=== PATIENT | female | born 1980 | race Caucasian/White ===

== ENCOUNTER 2021-08-07 12:34 | Inpatient (IN) | payer MEDICAID, SELFPAY ==
[2021-08-07 12:54] VITALS: BP 105/67; PULSE 80; RESP 17; O2SAT 99
[2021-08-07 14:00] VITALS: BP 105/67; PULSE 80; RESP 17; O2SAT 99
[2021-08-07] MEDS: nicotine 2 mg Gum BUCCAL ×2 (15:09→16:43)
[2021-08-07] MEDS: OLANZapine 5 mg ODT PO (16:45)
--- NOTE | 2021-08-07 16:45 | PC.NURSE ---
Addendum entered by Karin Fuentes LPN 08/07/21 18:11: prn med effective no further c/o anxiety/agitation currently, pt was able to shower, pleasant with staff interaction Original Note: PRN ZYPREXA ZYDIS 5 MG GIVEN PO PER PT C/O ANXIETY/AGITATION.
[2021-08-07 20:30] VITALS: BP 110/65; PULSE 75; RESP 18; O2SAT 99
[2021-08-08 06:00] VITALS: BP 103/66; PULSE 74; RESP 16; O2SAT 96
[2021-08-08] MEDS: nicotine 2 mg Gum BUCCAL ×3 (09:20→16:02)
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
[2021-08-08] MEDS: fluoxetine 20 mg Capsule PO (10:49)
[2021-08-08 14:00] VITALS: BP 128/91; PULSE 77; RESP 18; TEMP 36.7; O2SAT 97
[2021-08-08] MEDS: lurasidone 20 mg Tablet PO (16:22)
[2021-08-08] MEDS: hyDROXYzine 25 mg Capsule 50 MG PO (17:31)
--- NOTE | 2021-08-08 17:32 | PC.NURSE ---
PRN VISTARIL 50 MG GIVEN PO PER PT C/O ANXIETY
[2021-08-08 20:34] VITALS: BP 114/73; PULSE 85; RESP 20; TEMP 36.6; O2SAT 99
[2021-08-09 06:00] VITALS: BP 120/62; PULSE 79; RESP 18; TEMP 36.1; O2SAT 97
[2021-08-09 06:20] LABS: Glucose Point of Care 63 mg/dL (70-110)
[2021-08-09] MEDS: nicotine 2 mg Gum BUCCAL ×5 (06:20→15:57)
[2021-08-09] MEDS: hyDROXYzine 25 mg Capsule 50 MG PO ×2 (08:20→11:50)
[2021-08-09] MEDS: fluoxetine 20 mg Capsule PO (08:20)
[2021-08-09] MEDS: acetaminophen 325 mg Tablet 650 MG PO (08:21)
--- NOTE | 2021-08-09 09:10 | P.NPUPN_ITS ---
Subjective NPU Subjective: She feels like she is doing a little better. Could not tell any difference from the Latuda yesterday afternoon. When I was talking to another patient in the patient room she came into the room and said that she remembered that lithium had helped her before. She also requested that the Latuda be increased. She agrees to go to a treatment program because she thinks that is why her air support control officer would require. Mental Status Exam MSE Comments: This is a 41-year-old thin female who appears approximately her stated age and is in no acute distress.? She was found coloring in the day room. She is poorly groomed and in hospital scrubs. As we were talking she pushed the crayons off the table and onto the floor. When I asked why she did that she said that they just fell off the table. psychomotor activity is normal. Speech is at a regular rate and rhythm, normal volume, good articulation, not pressured. Alert, oriented X3 Attention and concentration appear to be normal. Memory is intact Mood is depressed.? Affect is moderately dysphoric and irritable Thought process is logical and goal-directed. Thought content:? Denies auditory and visual hallucinations.? No delusions or paranoia are noted.? No current suicidal ideation, and no homicidal ideation.? Fund of knowledge is average. Insight and judgment appear to be poor. Impulse control is poor. Cognition: Patient Appearance: Disheveled/Poor Hygiene Patient Orientation (long list): Person, Place, Name, Age and Birthday Comprehension Ability: No Impairment Hallucination Type: None Delusion Description: Not Present Thought Process: Appropriate Affect: Affect Description: Calm Behavior: Patient Behavior: Cooperative Speech Pattern: Clear Vitals/I&O/Wt Last Vital Signs Temp 98.2 F 08/10/21 13:58 Pulse 88 08/10/21 13:58 Resp 17 08/10/21 13:58 BP 143/83 08/10/21 13:58 Pulse Ox 98 08/10/21 13:58 Weight last 48 hrs Weight 58.151 kg A&P Assessment and plan (1) Methamphetamine abuse: Status: Acute (2) Alcohol abuse: Status: Acute (3) PTSD (post-traumatic stress disorder): Status: Acute (4) Homicidal ideation: Status: Acute Plan This is a 41-year-old female with a long history of alcohol and methamphetamine abuse in and out of senior care who reports significant PTSD, anxiety and depression Plan: 1.? Restart Prozac 20 mg daily and Latuda 20 mg daily.? Increase as tolerated. 2.? Continue every 15 minute checks for safety. 3.? Encourage individual, group and milieu therapies. 4.? Encourage sober living treatment after discharge at the highest level of c are to which she is willing to commit. 5.? We will monitor for safety for herself in the community prior to discharge. Involuntary Hold Information 96 Hour Hold: 96 Hour Involuntary Admission: Yes 96 Hour Hold Ending Date: 08/13/21 96 Hour Hold Ending Time: 12:42 Attestations NPU Medical Necessity Statement*: Inpatient hospitalization is medically necessary and the clinically appropriate intervention at this time. We will initiate medications and make changes as indicated. Coding Level of Care Code Acute Occupational Medicine Physician for Francisco Ashby Diagnoses Methamphetamine abuse F15.10 Alcohol abuse F10.10 PTSD (post-traumatic stress disorder) F43.10 Homicidal ideation R45.850
[2021-08-09 13:37] VITALS: BP 110/62; PULSE 85; RESP 16; TEMP 36.8; O2SAT 99
[2021-08-09] MEDS: lurasidone 20 mg Tablet PO (15:56)
[2021-08-09 21:29] VITALS: BP 103/62; PULSE 71; RESP 16; TEMP 36.4; O2SAT 97
[2021-08-10 06:00] VITALS: BP 112/69; PULSE 79; RESP 20; TEMP 36.5; O2SAT 99
[2021-08-10] MEDS: nicotine 2 mg Gum BUCCAL ×6 (06:05→17:34)
[2021-08-10] MEDS: fluoxetine 20 mg Capsule PO (07:43)
[2021-08-10] MEDS: hyDROXYzine 25 mg Capsule 50 MG PO (11:43)
--- NOTE | 2021-08-10 11:43 | PC.NURSE ---
prn vistaril 50 mg given po per pt c/o stated anxiety
[2021-08-10 13:58] VITALS: BP 143/83; PULSE 88; RESP 17; TEMP 36.8; O2SAT 98
--- NOTE | 2021-08-10 15:16 | W.PM.NPUPNS ---
Subjective NPU Subjective: I found her in the hallway talking on the phone. She was complaining to somebody about the treatment that she was getting here. She is obviously irritated. She said that we had the information wrong about her 96 hours and she should be leaving before . For some reason she says that people told her that today was a holiday and would not count toward the 96 hours. She said the medications were not strong enough. I told her we were increasing the Latuda today. I asked her what medications she would like to increase and she said we did not have medication strong enough to help her irritability. I informed her that she had been accepted at [facility]. She wanted more information which I did not have. However told her that the oncology social worker would talk to her later. I told her we would have to ask them if they would still except her if she went home on when her 96-hour hold is up. She said why would you ask them they are not in charge of me I tried to explain but she would not listen. Mental Status Exam MSE Comments: This is a 41-year-old thin female who appears approximately her stated age and is in no acute distress.? She was quite irritable throughout the conversation. She is dressed in hospital scrubs psychomotor activity is mildly increased Speech is at a regular rate and rhythm, normal volume, good articulation, not pressured. Alert, oriented X3 Attention and concentration appear to be normal. Memory is intact Mood is depressed.? Affect is moderately dysphoric and irritable Thought process is logical and goal-directed. Thought content:? Denies auditory and visual hallucinations.? No delusions or paranoia are noted.? No current suicidal ideation, and no homicidal ideation.? Fund of knowledge is average. Insight and judgment appear to be poor. Impulse control is poor. Cognition: Patient Appearance: Disheveled/Poor Hygiene Patient Orientation (long list): Person, Place, Name, Age and Birthday Comprehension Ability: No Impairment Hallucination Type: None Delusion Description: Not Present Thought Process: Appropriate Affect: Affect Description: Calm Behavior: Patient Behavior: Cooperative Speech Pattern: Clear Vitals/I&O/Wt Last Vital Signs Temp 98.2 F 08/10/21 13:58 Pulse 88 08/10/21 13:58 Resp 17 08/10/21 13:58 BP 143/83 08/10/21 13:58 Pulse Ox 98 08/10/21 13:58 Weight last 48 hrs Weight 58.151 kg A&P Assessment and plan (1) Methamphetamine abuse: Status: Acute (2) Alcohol abuse: Status: Acute (3) PTSD (post-traumatic stress disorder): Status: Acute (4) Homicidal ideation: Status: Acute Plan This is a 41-year-old female with a long history of alcohol and methamphetamine abuse in and out of [facility] who reports significant PTSD, anxiety and depression Plan: 1.? Restart Prozac 20 mg daily and increase Latuda to 40 mg 2.? Continue every 15 minute checks for safety. 3.? Encourage individual, group and milieu therapies. 4.? Encourage sober living treatment after discharge at the highest level of care to which she is willing to commit. 5.? We will monitor for safety for herself in the community prior to discharge. Involuntary Hold Information 96 Hour Hold: 96 Hour Involuntary Admission: Yes 96 Hour Hold Ending Date: 08/13/21 96 Hour Hold Ending Time: 12:42 Attestations NPU Medical Necessity Statement*: Inpatient hospitalization is medically necessary and the clinically appropriate intervention at this time. We will initiate medications and make changes as indicated. Coding Level of Care Code Acute Clarifier Operator Helper for Francisco Ashby Diagnoses Methamphetamine abuse F15.10 Alcohol abuse F10.10 PTSD (post-traumatic stress disorder) F43.10 Homicidal ideation R45.850
[2021-08-10] MEDS: lurasidone 20 mg Tablet 40 MG PO (16:28)
[2021-08-10 20:27] VITALS: BP 96/56; PULSE 77; RESP 16; TEMP 37; O2SAT 96
[2021-08-11 06:00] VITALS: BP 111/75; PULSE 86; RESP 17; TEMP 36.7; O2SAT 99
[2021-08-11] MEDS: hyDROXYzine 25 mg Capsule 50 MG PO ×2 (08:09→17:38)
[2021-08-11] MEDS: nicotine 2 mg Gum BUCCAL ×6 (08:09→17:38)
[2021-08-11] MEDS: fluoxetine 20 mg Capsule PO (08:09)
--- NOTE | 2021-08-11 13:10 | W.PM.NPUPNS ---
Subjective NPU Subjective: She continues to have a lot of anxiety. She is not happy about going straight from here to the treatment facility in [place] on . She has not had any side effects from the Latuda or the Prozac. She agrees to an increase tomorrow. Mental Status Exam MSE Comments: This is a 41-year-old thin female who appears approximately her stated age and is in no acute distress.? She is dressed in hospital scrubs psychomotor activity is mildly increased Speech is at a regular rate and rhythm, normal volume, good articulation, not pressured. Alert, oriented X3 Attention and concentration appear to be normal. Memory is intact Mood is depressed.? Affect is moderately dysphoric and irritable Thought process is logical and goal-directed. Thought content:? Denies auditory and visual hallucinations.? No delusions or paranoia are noted.? No current suicidal ideation, and no homicidal ideation.? Fund of knowledge is average. Insight and judgment appear to be poor. Impulse control is poor. Cognition: Patient Appearance: Disheveled/Poor Hygiene Patient Orientation (long list): Person, Place, Name, Age and Birthday Comprehension Ability: No Impairment Hallucination Type: None Delusion Description: Not Present Thought Process: Appropriate Affect: Affect Description: Appropriate Behavior: Patient Behavior: Appropriate Speech Pattern: Appropriate Vitals/I&O/Wt Last Vital Signs Temp 97.5 F L 08/12/21 06:00 Pulse 78 08/12/21 06:00 Resp 16 08/12/21 06:00 BP 117/77 08/12/21 06:00 Pulse Ox 97 08/12/21 06:00 A&P Assessment and plan (1) Methamphetamine abuse: Status: Acute (2) Alcohol abuse: Status: Acute (3) PTSD (post-traumatic stress disorder): Status: Acute (4) Homicidal ideation: Status: Acute Plan This is a 41-year-old female with a long history of alcohol and methamphetamine abuse in and out of [facility] who reports significant PTSD, anxiety and depression Plan: 1.? Increase Prozac to 40 mg and Latuda to 80 mg tomorrow 2.? Continue every 15 minute checks for safety. 3.? Encourage individual, group and milieu therapies. 4.? Encourage sober living treatment after discharge at the highest level of care to which she is willing to commit. 5.? We will monitor for safety for herself in the community prior to discharge. Involuntary Hold Information 96 Hour Hold: 96 Hour Involuntary Admission: Yes 96 Hour Hold Ending Date: 08/13/21 96 Hour Hold Ending Time: 12:42 Attestations NPU Medical Necessity Statement*: Inpatient hospitalization is medically necessary and the clinically appropriate intervention at this time. We will initiate medications and make changes as indicated. Coding Level of Care Code Acute Division Operations Manager for [facility] Fwd Diagnoses Methamphetamine abuse F15.10 Alcohol abuse F10.10 PTSD (post-traumatic stress disorder) F43.10 Homicidal ideation R45.086
[2021-08-11 14:00] VITALS: BP 131/77; PULSE 115; RESP 17; TEMP 36.8; O2SAT 97
--- NOTE | 2021-08-11 14:37 | PC.SOCIAL ---
Patient attended and participated in group.
[2021-08-11] MEDS: lurasidone 20 mg Tablet 40 MG PO (16:01)
[2021-08-11] MEDS: OLANZapine 5 mg ODT PO (16:17)
[2021-08-11 21:09] VITALS: BP 106/58; PULSE 66; RESP 16; TEMP 36.4; O2SAT 96
[2021-08-12] MEDS: nicotine 21 mg Patch 1 PATCH TRANSDERMA (05:22)
[2021-08-12 06:00] VITALS: BP 117/77; PULSE 78; RESP 16; TEMP 36.4; O2SAT 97
[2021-08-12] MEDS: OLANZapine 5 mg ODT PO (07:12)
--- NOTE | 2021-08-12 08:12 | W.PM.NPUPNS ---
Subjective NPU Subjective: She says Latuda calms her down just a little. She does not have any side effects from it. She agrees to increase to 80 mg this afternoon. She asked if she could take the Zyprexa more frequently. She continues to complain of anxiety as her primary problem. We are going to increase the Prozac to 40 mg today. She agrees to the transfer tomorrow to the treatment program in [facility]. She has applied for Medicaid and is hoping it will be approved soon. Mental Status Exam MSE Comments: This is a 41-year-old thin female who appears approximately her stated age and is in no acute distress.? She is more pleasant today than she has been in some past visits. She is dressed in hospital scrubs psychomotor activity is normal. Speech is at a regular rate and rhythm, normal volume, good articulation, not pressured. Alert, oriented X3 Attention and concentration appear to be normal. Memory is intact Mood is depressed but a little better Affect is mildly dysphoric. Thought process is logical and goal-directed. Thought content:? Denies auditory and visual hallucinations.? No delusions or paranoia are noted.? No current suicidal ideation, and no homicidal ideation.? Fund of knowledge is average. Insight and judgment appear to be poor. Impulse control is poor. Cognition: Patient Appearance: Disheveled/Poor Hygiene Patient Orientation (long list): Person, Place, Name, Age and Birthday Comprehension Ability: No Impairment Hallucination Type: None Delusion Description: Not Present Thought Process: Appropriate Affect: Affect Description: Appropriate Behavior: Patient Behavior: Appropriate Speech Pattern: Appropriate Vitals/I&O/Wt Last Vital Signs Temp 97.5 F L 08/12/21 06:00 Pulse 78 08/12/21 06:00 Resp 16 08/12/21 06:00 BP 117/77 08/12/21 06:00 Pulse Ox 97 08/12/21 06:00 A&P Assessment and plan (1) Methamphetamine abuse: Status: Acute (2) Alcohol abuse: Status: Acute (3) PTSD (post-traumatic stress disorder): Status: Acute (4) Homicidal ideation: Status: Acute Plan This is a 41-year-old female with a long history of alcohol and methamphetamine abuse in and out of nursing home who reports significant PTSD, anxiety and depression Plan: 1.? Increase Prozac to 40 mg and Latuda to 80 mg daily 2.? Continue every 15 minute checks for safety. 3.? Encourage individual, group and milieu therapies. 4.? Encourage sober living treatment after discharge at the highest level of care to which she is willing to commit. 5.? We will monitor for safety for herself in the community prior to discharge. Involuntary Hold Information 96 Hour Hold: 96 Hour Involuntary Admission: Yes 96 Hour Hold Ending Date: 08/13/21 96 Hour Hold Ending Time: 12:42 Attestations NPU Medical Necessity Statement*: Inpatient hospitalization is medically necessary and the clinically appropriate intervention at this time. We will initiate medications and make changes as indicated. Coding Level of Care Code Acute Dump Truck Driver for Francisco Ashby Diagnoses Methamphetamine abuse F15.10 Alcohol abuse F10.10 PTSD (post-traumatic stress disorder) F43.10 Homicidal ideation R45.850
[2021-08-12] MEDS: fluoxetine 20 mg Capsule 40 MG PO (08:40)
[2021-08-12] MEDS: nicotine 2 mg Gum BUCCAL ×4 (08:48→16:59)
[2021-08-12 14:00] VITALS: BP 119/70; PULSE 105; RESP 18; TEMP 36.6; O2SAT 97
[2021-08-12] MEDS: lurasidone 20 mg Tablet 80 MG PO (16:59)
[2021-08-12 20:58] VITALS: BP 103/56; PULSE 77; RESP 16; TEMP 36.7; O2SAT 97
[2021-08-13 06:00] VITALS: BP 101/66; PULSE 83; RESP 16; TEMP 36.9; O2SAT 96
[2021-08-13] MEDS: nicotine 2 mg Gum BUCCAL ×2 (06:06→08:50)
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
[2021-08-13 07:50] VITALS: BP 101/66; PULSE 83; RESP 16; TEMP 36.9; O2SAT 96
[2021-08-13] MEDS: fluoxetine 20 mg Capsule 40 MG PO (08:50)
[2021-08-13] MEDS: OLANZapine 5 mg ODT PO (09:18)
--- NOTE | 2021-08-13 09:19 | PC.NURSE ---
patient coicing increased anxiety and agitation. Zydis 5 mg sl given for this.
--- NOTE | 2021-08-14 10:36 | PC.NURSE ---
Patient did not mixing picker tender medications on discharge from pharmacy. Nurse called to have medication transferred to [facility]. [facility] notified of medications needed to be transferred and given [facility] pharmacy number.
== END 2021-08-13 11:20 | disposition home or self-care (01) | DRG 882 ==
PROVIDERS: Admitting Provider Psychiatry & Neurology Psychiatry; Visit Provider Psychiatry & Neurology Psychiatry
DX: F43.10 Post-traumatic stress disorder, unspecified (principal); R45.850 Homicidal ideations; F41.9 Anxiety disorder, unspecified; F32.A Depression, unspecified; F10.10 Alcohol abuse, uncomplicated; F15.10 Other stimulant abuse, uncomplicated; Z91.419 Personal history of unspecified adult abuse; Z65.3 Problems related to other legal circumstances
CPT/HCPCS: 36416; 82962; 97150; 97165